=== PATIENT | male | born 1950 ===

== ENCOUNTER 2022-05-10 11:00 | Day surgery (SDC) | payer OTHER ==
[~2022-05-10 11:00] MED LIST: LIPITOR20 MG PO
== END 2022-05-10 19:35 | disposition home or self-care (01) ==
LOC: CIR.AMB 11:00
PROVIDERS: ATTEND Surgery Surgery of the Hand
DX: M67.843 Other specified disorders of tendon, right hand (principal); E78.5 Hyperlipidemia, unspecified; Z20.822 Contact with and (suspected) exposure to COVID-19